=== PATIENT | female | born 1955 | race Caucasian/White ===

== ENCOUNTER 2017-07-02 12:17 | Emergency (ER) | payer OTHER, SELFPAY ==
[2017-07-02 12:19] VITALS: BP 151/98; PULSE 94; RESP 16; TEMP 36.8; O2SAT 99; BMI 18.8
--- NOTE | 2017-07-02 12:34 | RAD_ITS ---
STUDY: X-RAY CHEST REASON FOR EXAM: Female, 62 years old. 2 day history of chest pain. TECHNIQUE: PA and lateral views of the chest. COMPARISON: None. FINDINGS: EKG electrodes are seen. Pectus excavatum deformity. Hyperinflation. Decreased bronchovascular markings in the upper lobes suggestive of emphysematous changes. There is no demonstrated pleural abnormality. Normal size heart. Normal mediastinum and polo. Normal visualized pulmonary arteries. Normal visualized aortic arch and descending thoracic aorta. Normal visualized thoracic spine. Normal visualized ribs, clavicles, and shoulders. There is no demonstrated abnormality of the visualized soft tissue structures of the upper abdomen. RAD/Chest PA and Lateral IMPRESSION: Hyperinflation. No acute abnormality is seen. Electronically Signed: Jj Fowler MD at 13:31 EST Tel [phone], Service support ,
[2017-07-02 12:43] VITALS: BP 142/76; PULSE 86; RESP 16; O2SAT 99
[2017-07-02 14:18] VITALS: BP 118/71; PULSE 75; RESP 16; O2SAT 100
--- NOTE | 2017-07-02 14:50 | ED.DCSUM_ITS ---
- ER Visit Summary Date of Service: 07/02/17 Chief Complaint: Heartburn History of Present Illness: The patient is a 62 F presents with epigastric mid chest heartburn sensation that started 3 minutes after she was on a treadmill Saturday. She had pain for days. She has taken antacids with no improvement. She denies hematemesis, melena hematochezia. She has walked up and down steps with no exacerbation of her symptoms. There is no radiation of her discomfort. There is no associated symptoms. She has no risk factors for coronary disease. She denies any leg pain, swelling or discoloration. There is no history of PE or DVT or any risk factors. Physical Examination: Vital signs are normal. Patient appears in no distress. HEENT exam is unremarkable. Heart is regular without murmur, gallop or rub. S1 and S2 are normal. Lungs are clear to auscultation with good movement of air bilaterally. There is no reproducible chest pain. There is minimal discomfort with deep palpation epigastric. There is no paraspinal megaly. Negative Bhatti sign. There are no skin lesions noted. There is no asymmetry, swelling, discoloration, leg vein distention, palpable cords or tenderness along the distribution of the deep venous system. Test Results: G that accompany patient from the office reveals a sinus rhythm with no abnormality other than possible left atrial enlargement. This is unchanged from July 27, 2009. Chest x-ray is obtained with no obvious hiatal hernia. There is no cardiomegaly, abnormality mediastinum or lung parenchyma. Troponin level with greater than 48 hours the pain is normal. Emergency Department Course and Treatment: EKG, chest x-ray and troponin were obtained. The EKG was not repeated since it was normal and unchanged from 2009. She did receive a GI cocktail. When she was reassessed at 1445 she told me her pain had resolved. Treatment Plan: Follow-up with PCP as needed Disposition: Discharge to home in stable and improved condition Impression: Chest pain pain secondary to reflux This note was generated with [employer] dictation software. It may contain incorrect words, spelling, and punctuation that were not noted in review of the chart prior to signing ED Disposition - Plan for ED Patient: Disposition: Home or Assisted Living Chief Complaint: Chest Pain Instructions: ED GERD Referrals: Lnea Trejo MD [Primary Care Provider] - As Needed
[2017-07-02 15:04] VITALS: BP 116/72; PULSE 81; RESP 13; O2SAT 100
--- NOTE | 2017-07-02 15:06 | ED.RN ---
REVIEWED D/C INSTRUCTIONS, FOLLOW UP CARE, AND S/S THAT WOULD WARRANT A RETURN TO THE ED WITH PT. PT VERBALIZED AN UNDERSTANDING AND DENIES FURTHER QUESTIONS FOR THIS RN. PT SKIN P/W/D, RESP EVEN AND UNLABORED, PT A&O X 3, NO DISTRESS NOTED. PT AMBULATED OUT OF ED, GAIT STEADY.
== END 2017-07-02 15:07 | disposition home or self-care (01) ==
PROVIDERS: Emergency Provider Emergency Medicine; Family Provider Family Medicine; PCP Family Medicine
DX: K21.9 Gastro-esophageal reflux disease without esophagitis (principal); R07.9 Chest pain, unspecified; Z79.899 Other long term (current) drug therapy
CPT/HCPCS: 71046; 84484; 99284; A4216

== ENCOUNTER → 2017-08-16 10:03 | Outpatient (CLI) | payer OTHER, SELFPAY ==
--- NOTE | 2017-08-16 10:06 | HPBI_ITS ---
MAMMOGRAPHY - BILATERAL SCREENING 3-D JOANN SYNTHESIS REASON FOR EXAM: Female, 62 years old. Bilateral Screening 3-D tomosynthesis PERTINENT HISTORY: History of benign breast biopsy.. TECHNIQUE: 2-D mammograms and 3-D Joann synthesis of the breast (s) were performed. CAD was performed. COMPARISON: 07/11/2016 FINDINGS: The breast composition is heterogeneously dense that can obscure small breast masses. Scattered benign calcifications are seen. No dense spiculated masses or suspicious microcalcifications are identified. No architectural distortion is identified. There is no skin thickening or retraction. There has been no significant change since the prior study. HPBI/SCREENING MAMM (CAD), BILAT IMPRESSION: No mammographic signs of malignancy. Routine yearly mammograms recommended. ASSESSMENT CATEGORY: BIRADS Category 2: Benign. A letter regarding these results will be sent to the patient by the facility within 30 days. FOLLOW UP RECOMMENDATION: Yearly follow up mammogram recommended. (A) Approximately 10% of breast cancers are not detected by mammography. A normal mammogram should not delay biopsy of a clinically suspicious abnormality. Electronically Signed: Manuel Navarro MD at 8:40 EDT , Service support ,
== END ==
PROVIDERS: Family Provider Family Medicine; PCP Family Medicine; Visit Provider Family Medicine
DX: Z12.31 Encounter for screening mammogram for malignant neoplasm of breast (principal)
CPT/HCPCS: 77063; 77067

== ENCOUNTER 2017-09-13 07:32 | Day surgery (SDC) | payer OTHER, SELFPAY ==
--- NOTE | 2017-09-13 | COLBX_PTH ---
PATIENT: SAMANTHA RIVERA LOC: EN U#:[id number] AGE/SX: 62/F ROOM: RE09/13/[address]: Dr. Yves Galdamez MD : 1955 BED: DIS: 09/13/2017 SPEC #: [id number] RECD: 09/13/17 14:30 STATUS: STAR RENEA #: [id number] ANDRE: 09/13/17 00:[address]: Yves Galdamez DEPT: SURGICAL PATHOLOGY RECD BY: Clive Harley ENTERED: 09/13/17 14:30 SP TYPE: COLON BX OTHR DR: Dr. Lena Trejo MD Tissues: Rectum, NOS Procedures: Surgery Specimen Level IV HEADER OPERATION: Colonoscopy with biopsy PRE-OP DIAGNOSIS: Screening TISSUE SUBMITTED: Rectal polyp biopsy MICROSCOPIC DIAGNOSIS Rectal polyp, biopsy: Hyperplastic polyp. AM:rosa 09/16/17 MICROSCOPIC DESCRIPTION Slides are reviewed. GROSS DESCRIPTION Received in fixative is one container labeled with the patient's name and designated rectal polyp. The specimen consists of one irregular fragment of light puri soft tissue that measures 0.3 x 0.2 x 0.1 cm. The specimen is totally submitted in one cassette. / AM:rosa 09/13/17 TC:5 CPT: 54398
[2017-09-13 07:55] VITALS: BP 117/91; PULSE 97; RESP 18; TEMP 36.6; O2SAT 100; BMI 17.9
--- NOTE | 2017-09-13 08:29 | H&P.OPEN ---
Past Medical/Surgical History - Planned Operation Planned Operative Procedure/s: COLONOSCOPY Date of Operative Procedure: 09/13/17 Permit Signed: No S.O.S: No Is This Patient Having a Total Joint: No - Previous Hospitalizations/Surgeries HX of Surgeries: BREAST BIOPSIES LEFT. D AND C. EGD Any Problems With Anesthesia: No You/Your Family Experience Fever (Hyperthermia) With Anes: No Cholinesterase deficiency: No - Cardiovascular Hx Chest Pain within Last 2 months: No Hx of Irregular Heartbeat and/or Afib: No Hx Heart Attack: No Hx Congestive Heart Failure: No Hx Rheumatic Fever: No Hx Hypertension: No Hx Internal Defibrillator: No Hx Pacemaker: No Hx Cardiac Catheterization: No Hx Cardiac Surgery/Stents/Etc.: No Hx Stress Test: Yes - 2009, [facility] HX Edema: No Hx Pain in Legs when Walking/Leg Cramps: No - Respiratory Chronic Cough: No HX of Shortness of Breath: No Hoarseness: No Hx Chronic Obstructive Pulmonary Disease (COPD): No Hx Asthma: No Hx Emphysema: No Hx Sleep Apnea: No Hx Oxygen Use at Home: No Hx Respiratory Tract Infection/Cold (presently): No Do You Snore Loudly (louder than talking or can be heard): No Do You Often Feel Tired/ Fatigued/ Sleepy Dring Daytime?: No Has Anyone Observed You Stop Breathing During Sleep?: No Result (for STOP score): Negative Hx Smoking: No Smoking Status: Never smoker - Gastrointestinal Hx Gastroesophageal Reflux: Yes Controlled With Meds: Yes - NEXIUM Hx Gastrointestinal Disorders: No Hx Gastrointestinal Bleed: No Hx Ulcer: No Hx Hiatal Hernia: No Difficulty Chewing/Swallowing: No Recent Onset of Swallowing Problems: No Special diet followed at home: No Hx Unplanned Weight Loss of 20#: No HX Unplanned Weight Gain of 20#: No - Neurological Hx Seizures: No HX Syncope/Blackout Spells/Unconsciousness: No Hx CVA/Stroke: No Hx Transient Ischemic Attacks (TIA): No Hx Multiple Sclerosis: No Hx Parkinson's Disease: No Hx Head/Neck Injury: No Hx Headaches: No Hx Back Injury/Pain: No Recent Onset of Speech Difficulty: No Restless Legs: No Does patient have nerve stimulator: No Patient instructed to have device shut off: No Rep notified?: No - Blood Disorder Hx Leukemia: No Bleeding Tendencies: No Hx Deep Vein Thrombosis: No Hx High Cholesterol: No Blood Transmitted Disease: No Hx Hepatitis: No Hx Cirrhosis: No Hx Anemia: No Hx Blood Disorders: No - Reproduction : No Is Patient Lactating: No Hx Hysterectomy: No Hx Tubal Ligation: No Are You Post Menopause: Yes - Genitourinary Hx Renal Disease: No - Musculoskeletal Hx Arthritis: No Hx Rheumatoid Arthritis: No Hx Gout: No Recent Onset of an Orthopedic Problem: No - Endocrine Hx Diabetes: No Thyroid Disease: No Hx Steroid Therapy: No - Psycho/Social Hx Substance Use: No Hx Alcohol Use: Yes - 5 DRINKS/WEEK Hx Anxiety: No Hx Depression: No Mental Illness: No Hx Dementia: No - Miscellaneous Hx Cancer: No Recent Exposure to Contagious Disease: No Active MRSA: No Hx of C-Diff: No Any Loose Teeth: No Allergies No Known Allergies Allergy (Verified 09/06/17 10:36) Home Medications Medication Instructions Recorded Esomeprazole Mag Trihydrate 40 mg PO DAILY 09/06/17 [Nexium] - Discharge Is Pt Admitted From a Halfway, or a Retirement: No Who Could Help: FAMILY After D/C, Where Do you Plan to Go: Return Home - From the PAT History Number of Risk Factors: 1 - Physical Exam General: Alert, Oriented x3, Cooperative Lungs: Normal air movement Cardiovascular: Regular rate, Regular Rhythm Abdomen: Soft, Non Tender, Non-Distended Vital Signs Temp Pulse Resp BP Pulse Ox 98 F 97 18 117/91 H 100 09/13/17 07:55 09/13/17 07:55 09/13/17 07:55 09/13/17 07:55 09/13/17 07:55 Oxygen Delivery Method Room Air Weight: 107 lb 9.369 oz Body Mass Index (BMI) 17.9 Assessment/Plan 62-year-old female for screening colonoscopy 1. Patient reports she has never had a colonoscopy in the past. She does not have any abdominal pain or blood in her stool. She has no family history of colon cancer. 2. I explained endoscopy in detail to the patient. I explained the risks including but not limited to stroke or heart attack with anesthesia, perforation of the GI tract, bleeding, infection. I explained that any of these could necessitate further emergency surgery. The patient understands and all questions were answered sufficiently. The patient wishes to proceed with procedure. Yves Galdamez MD Pager: [facility] [address] [place] [address] Office: Surgery Risks - Colonoscopy Risks Include but are not Limited To: Risks include but are not limited to: Bleeding, perforation requiring further surgery, inability to complete colonoscopy requiring barium enema.
[2017-09-13 09:17] VITALS: BP 110/79; BP 117/91; PULSE 96; RESP 16; TEMP 36; O2SAT 99
[2017-09-13 09:22] VITALS: BP 117/91; BP 93/73; PULSE 89; RESP 16; O2SAT 100
--- NOTE | 2017-09-13 09:23 | PCM.OPRPT ---
Problem List (1) Screen for colon cancer Status: Acute Report of Operation Date of Procedure: 09/13/17 Pre-Operative Diagnosis: Screening for colon cancer Post-Operative Diagnosis: Hyperplastic polyp of the rectum Surgery/Procedure Performed:: Colonoscopy with biopsy Specimen's removed: Rectal polyp Description of Procedure: The major risks and benefits associated with the procedure were explained to the patient in detail. The patient verbalized understanding and agreement with the same. The patient was brought to the endoscopy suite. After adequate sedation was achieved, the patient was placed in the left lateral decubitus position and a digital rectal exam was performed. This examination was within normal limits. A well-lubricated colonoscope was then inserted into the rectum and advanced under direct visualization to the level of the cecum. The bowel prep was good. The cecum was identified by both visual and anatomic landmarks. A photograph was taken of the end of the cecum. The scope was then fully withdrawn while examining the color, texture, anatomy and integrity of the mucosa from the cecum to the anal canal. The findings were consistent with normal colonic mucosa. The patient did have a small hyperplastic appearing polyp of the rectum. This was removed with cold forceps. Hemostasis was good. Over 6 minutes were taken to examine the colonic mucosa. Upon reaching the rectum the scope was retroflexed to examine the distal rectal vault. The scope was then straightened and was completely retrieved upon exiting the anal canal and the procedure was terminated. The patient was then transferred to the recovery room in stable condition. Recommendations for follow up: Dependent on pathology but likely 10 years
[2017-09-13 09:27] VITALS: BP 108/74; BP 117/91; PULSE 86; RESP 16; O2SAT 100
[2017-09-13 09:32] VITALS: BP 109/70; BP 117/91; PULSE 83; RESP 16; TEMP 36.1; O2SAT 100
[2017-09-13 10:22] VITALS: BP 117/91
== END 2017-09-13 10:23 | disposition home health service (06) ==
LOC: EN 07:33 → AC 07:35
PROVIDERS: Family Provider Family Medicine; PCP Family Medicine; Visit Provider Surgery
PROC: 0DJD8ZZ Inspection of Lower Intestinal Tract, Via Natural or Artificial Opening Endoscopic (ICD-10-PCS; CPT 45378; principal; 2017-09-13 08:25)
DX: Z12.11 Encounter for screening for malignant neoplasm of colon (principal); K62.1 Rectal polyp; K21.9 Gastro-esophageal reflux disease without esophagitis; Z79.899 Other long term (current) drug therapy
CPT/HCPCS: 45380; 88305; J7120

== ENCOUNTER 2017-09-23 09:30 | Outpatient (RCR) | payer OTHER, SELFPAY ==
--- NOTE | 2017-09-10 09:05 | HP.PTEVAL ---
Patient's Visit Information SAMANTHA RIVERA is a 62 year old F referred to Physical Therapy by Lena Trejo MD with a diagnosis of R shoulder pain. Date of Evaluation: 09/10/17 Physical Therapist: Orlando French PT, - Visit Plan Frequency: 3x /Week Duration: 1 Week Plan: Issue HEP consisting of rot cuff strengthening and scap stab ex's - Subjective Subjective: R shoulder has been sore since March of 2017. Pt reports her pain has progressed since that date. Pt reports no specific reason for her pain. Pain only occurs with movement, not with rest. Pt is L arm dominant. No PMHx of R shoulder pain. Occasional sleep diff secondary to sleeping on it. No T or N in R UE. No c/o cervical spine pain this date. 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 Pt reports reaching out to her side, reaching behind her back, and reaching overhead all produce R shoulder pain. Pt reports she will massage her shoulder to make it feel better. 0/10 pain at rest, 8/10 at worst (reaching for her shopping cart). No Dx tests at this time. - Pain R shoulder Pain Intensity (Out of 10): 0 Pain Intensity Range: 8 - Objective Neuro: B UE sensation is WNL to light touch. B bicepital reflex= 2/3. Palpation: Pt is very tender on the post/lat aspect of R UE. No obvious deformity present. ROM: L shoulder flex= 145, abd= 155, ER= 75, IR WNL; R shoulder flex= 95, abd= 60, ER= 30, IR moderately limited. MMT: R shoulder abd and ER= 4-/5. All other B UE MMT= 5/5 throughout in available ROM. Special tests: Pos HK test - Goals Goal 1:: I with HEP in 2-3 visits Goal Time Frame: 1 Week - Rehabilitation Potential Physical Therapy Diagnosis: Pt has R shoulder pain, weakness, and limited ROM secondary to weakness in R shoulder external rotators Rehabilitation Potential: Good - Anticipated Interventions Patient/Client Instruction: Educate patient on: Condition, Plan of Care For the Purpose of:: To improve self management Therapeutic Exercise to Include: Strength training, Endurance training, Active ROM For the Purpose of:: To decrease pain, To increase ROM, To improve muscle performance and motor function Cryotherapy (ice pack, ice massage): Yes For the Purpose of:: To decrease pain Thank you for the opportunity to evaluate your patient. For Medicare and Medicare HMO plans, please review the plan of care and approve it. It will need to be FAXED BACK to us at [phone] for Medicare purposes. Please let me know if there are questions or concerns regarding this plan of care. Physician Signature: Date:
--- NOTE | 2017-09-23 10:04 | HP.PTEVAL ---
Patient's Visit Information SAMANTHA RIVERA is a 62 year old F referred to Physical Therapy by Lena Trejo MD with a diagnosis of R shoulder pain. Date of Evaluation: 09/10/17 Physical Therapist: Orlando French PT, - Visit Plan Frequency: 3x /Week Duration: 1 Week Plan: Discharge - Subjective Subjective: R shoulder has been sore since March of 2017. Pt reports her pain has progressed since that date. Pt reports no specific reason for her pain. Pain only occurs with movement, not with rest. Pt is L arm dominant. No PMHx of R shoulder pain. Occasional sleep diff secondary to sleeping on it. No T or N in R UE. No c/o cervical spine pain this date. 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 Pt reports reaching out to her side, reaching behind her back, and reaching overhead all produce R shoulder pain. Pt reports she will massage her shoulder to make it feel better. 0/10 pain at rest, 8/10 at worst (reaching for her shopping cart). No Dx tests at this time. - Pain R shoulder Pain Intensity (Out of 10): 0 Pain Intensity Range: 8 - Objective Neuro: B UE sensation is WNL to light touch. B bicepital reflex= 2/3. Palpation: Pt is very tender on the post/lat aspect of R UE. No obvious deformity present. ROM: L shoulder flex= 145, abd= 155, ER= 75, IR WNL; R shoulder flex= 95, abd= 60, ER= 30, IR moderately limited. MMT: R shoulder abd and ER= 4-/5. All other B UE MMT= 5/5 throughout in available ROM. Special tests: Pos HK test - Goals Goal 1:: I with HEP in 2-3 visits Goal Time Frame: 1 Week - Rehabilitation Potential Physical Therapy Diagnosis: Pt has R shoulder pain, weakness, and limited ROM secondary to weakness in R shoulder external rotators Rehabilitation Potential: Good - Anticipated Interventions Patient/Client Instruction: Educate patient on: Condition, Plan of Care For the Purpose of:: To improve self management Therapeutic Exercise to Include: Strength training, Endurance training, Active ROM For the Purpose of:: To decrease pain, To increase ROM, To improve muscle performance and motor function Cryotherapy (ice pack, ice massage): Yes For the Purpose of:: To decrease pain Thank you for the opportunity to evaluate your patient. For Medicare and Medicare HMO plans, please review the plan of care and approve it. It will need to be FAXED BACK to us at [phone] for Medicare purposes. Please let me know if there are questions or concerns regarding this plan of care. Physician Signature: Date:
--- NOTE | 2017-10-23 14:54 | HP.PTDCSUM ---
HP - PT D/C Summary It has been my pleasure to treat SAMANTHA RIVERA under orders from Lena Trejo MD, for the diagnosis of R shoulder pain for a total of 4 visit(s). Discharge Date: Please see the following information for a summary of their discharge status. - Subjective Subjective: No pain at rest - Pain R shoulder Pain Intensity (Out of 10): 0 - Objective Objective/Function: Pt I with HEP - Goals Goal 1:: I with HEP in 2-3 visits Goal Progress: Goal Met - Plan Plan: Discharge - D/C Information If there are questions or concerns regarding this patient's physical therapy, please feel free to call me at [phone]. Thank you for the referral of this patient. Sincerely, Orlando French, PT,
== END 2017-09-23 19:00 | disposition home or self-care (01) ==
LOC: PT 09:30
PROVIDERS: Family Provider Family Medicine; PCP Family Medicine; Visit Provider Family Medicine
DX: M25.519 Pain in unspecified shoulder (principal)
CPT/HCPCS: 97110; 97161; 97530

== ENCOUNTER → 2018-10-23 | Outpatient (CLI) | payer OTHER, SELFPAY ==
[2018-09-29 16:48] VITALS: BMI 18.8
--- NOTE | 2018-10-23 12:10 | BI_ITS ---
MAMMOGRAPHY - BILATERAL SCREENING REASON FOR EXAM: Female, 63 years old. Routine annual screening examination. PERTINENT HISTORY: Non-contributory. Remote left excisional breast biopsy. TECHNIQUE: Digital bilateral breast joann (3D mammographic acquisition) in the CC and MLO projections. 2-D mediolateral oblique (MLO) and craniocaudad (CC) views of both breasts were obtained. CAD: Full Field Digital Mammography with Computer Added Detection was performed. COMPARISON: Comparison is made with prior study dated August 16, 2017 and July 11, 2016. FINDINGS: Breast Composition: The breasts are heterogeneously dense, which may obscure small masses. There are no dominant masses or suspicious calcifications. No other significant abnormalities are identified. There has been no significant change since the prior study. BI/SCREEN MAMM (CAD) W/JOANN BILAT IMPRESSION: Stable bilateral screening mammogram. Yearly follow-up mammogram recommended. (A) ASSESSMENT CATEGORY: BIRADS Category 1: Negative. A letter regarding these results will be sent to the patient by the facility within 30 days. Approximately 10% of breast cancers are not detected by mammography. A normal mammogram should not delay biopsy of a clinically suspicious abnormality. [id number] Electronically Signed: Jj Fowler, at 13:51 EDT , Service support ,
== END | disposition home or self-care (01) ==
LOC: OPBI 12:06
PROVIDERS: Family Provider Family Medicine; PCP Family Medicine; Referring Provider Family Medicine; Visit Provider Family Medicine
DX: Z12.31 Encounter for screening mammogram for malignant neoplasm of breast (principal)
CPT/HCPCS: 77063; 77067

== ENCOUNTER → 2020-04-05 06:59 | Outpatient (CLI) | payer MEDICARE, OTHER, SELFPAY ==
[2018-09-29 16:48] VITALS: BMI 18.8
--- NOTE | 2020-04-05 07:01 | BI_ITS ---
MAMMOGRAPHY - BILATERAL SCREENING REASON FOR EXAM: Female, 65 years old. Routine annual screening examination. PERTINENT HISTORY: Non-contributory. Remote left excisional breast biopsy. TECHNIQUE: Digital bilateral breast joann (3D mammographic acquisition) in the CC and MLO projections. 2-D mediolateral oblique (MLO) and craniocaudad (CC) views of both breasts were obtained. CAD: Full Field Digital Mammography with Computer Added Detection was performed. COMPARISON: Comparison is made with prior study dated 10/23/2018 and 08/16/2017. FINDINGS: Breast Composition: The breasts are heterogeneously dense, which may obscure small masses. There are no dominant masses or suspicious calcifications. No other significant abnormalities are identified. There has been no significant change since the prior study. BI/SCREEN MAMM (CAD) W/JOANN BILAT IMPRESSION: Stable bilateral screening mammogram. Yearly follow-up mammogram recommended. (A) ASSESSMENT CATEGORY: BIRADS Category 1: Negative. A letter regarding these results will be sent to the patient by the facility within 30 days. Approximately 10% of breast cancers are not detected by mammography. A normal mammogram should not delay biopsy of a clinically suspicious abnormality. [id number] Electronically Signed: Jj Fowler, at 8:04 EST , Service support ,
== END ==
PROVIDERS: PCP Family Medicine; Referring Provider Family Medicine; Visit Provider Family Medicine
DX: Z12.31 Encounter for screening mammogram for malignant neoplasm of breast (principal)
CPT/HCPCS: 77063; 77067

== ENCOUNTER → 2020-08-31 09:10 | Outpatient (CLI) | payer MEDICARE, OTHER, SELFPAY ==
[2018-09-29 16:48] VITALS: BMI 18.8
[2020-08-31 10:59] LABS: Anion Gap 3 (5-15); BUN 22 mg/dL (7-18); BUN/Creat Ratio 29.5 RATIO (10-20); Calcium,Total 9.4 mg/dL (8.5-10.1); Chloride 106 mmol/L (98-107); Cholesterol 215 mg/dL (200); Creatinine, Serum 0.74 mg/dL (0.55-1.02); EST Glomerular Filtration Rate 83 mL/min (>60); Est Glom Filt Rate - Afr Amer 100 mL/min (>60); Glucose 85 mg/dL (74-106); High Density Lipoprotein 80 mg/dL; Magnesium 2.2 mg/dL (1.6-2.6); Potassium 4.2 mmol/L (3.5-5.1); Sodium Level 141 mmol/L (136-145); Triglycerides 70 mg/dL; Very Low Density Lipoprotein 14 mg/dL (5-40)
[2020-08-31 11:57] LABS: Vitamin D,25 Hydroxy 37.2 ng/mL
== END ==
PROVIDERS: PCP Family Medicine; Referring Provider Family Medicine; Visit Provider Family Medicine
DX: Z00.00 Encounter for general adult medical examination without abnormal findings (principal); K21.9 Gastro-esophageal reflux disease without esophagitis; M85.80 Other specified disorders of bone density and structure, unspecified site
CPT/HCPCS: 36415; 80048; 80061; 82306; 83735

== ENCOUNTER → 2020-09-20 08:52 | Outpatient (CLI) | payer MEDICARE, OTHER, SELFPAY ==
[2018-09-29 16:48] VITALS: BMI 18.8
--- NOTE | 2020-09-20 08:59 | BD_ITS ---
STUDY: DUAL ENERGY X-RAY ABSORPTIOMETRY / DXA REASON FOR EXAM: Female, 65 years old. V76.12ScreeningBONE DENSITY REASON FOR EXAM TECHNIQUE: Bone Mineral Density (BMD) measurements of lumbar spine and bilateral hips were obtained. COMPARISON: None. FINDINGS: Lumbar Spine (L1-L4): g/cm2 (1.121) / T-score (-0.5) / Z-score (1.1) Findings are suggestive of normal bone density with a low fracture risk. Left Femur Total: g/cm2 (0.847) / T-score (-1.3) / Z-score (0.0) Left Femoral Neck: g/cm2 (0.768) / T-score (-1.9) / Z-score (-0.4) Right Femur Total: g/cm2 (0.855) / T-score (-1.2) / Z-score (0.1) Right Femoral Neck: g/cm2 (0.738) / T-score (-2.2) / Z-score (0.6) BD/Dexa Bone Density Study IMPRESSION: The patient is considered osteopenic as outlined below according to World Tal Organization (WHO) criteria with a high fracture risk. Reference Information: The T-score is the number of standard deviations above or below the standard which is normal for young adults at their peak bone mineral density. The World Health Organization (WHO) interprets the T-scores as follows: Above -1 Normal bone density Between -1 and -2.5 Osteopenia Equal to / or below -2.5 Osteoporosis As a practical clinical guideline, osteopenia may be graded as follows: Mild -1 through -1.5 Moderate -1.6 through -2.0 Severe -2.1 through -2.4 The Z-score is the number of standard deviations above or below age-matched controls. A Z-score of less than -1.5 would be considered abnormal. References: 1. NIH Osteoporosis and Related Bone Diseases www osteo.org 2. International Society for Clinical Densitometry www iscd.org 3. National Osteoporosis Foundation www nof.org Electronically Signed: Jj Fowler MD at 13:30 EDT , Service support ,
== END ==
PROVIDERS: PCP Family Medicine; Referring Provider Family Medicine; Visit Provider Family Medicine
DX: M85.89 Other specified disorders of bone density and structure, multiple sites (principal)
CPT/HCPCS: 77080

== ENCOUNTER → 2021-04-24 09:43 | Outpatient (CLI) | payer MEDICARE, OTHER, SELFPAY ==
[2018-09-29 16:48] VITALS: BMI 18.8
--- NOTE | 2021-04-24 09:45 | BI_ITS ---
MAMMOGRAPHY - BILATERAL SCREENING REASON FOR EXAM: Female, 66 years old. Routine annual screening examination. PERTINENT HISTORY: Remote left excisional breast biopsies. TECHNIQUE: Digital bilateral breast joann (3D mammographic acquisition) in the CC and MLO projections. 2-D mediolateral oblique (MLO) and craniocaudad (CC) views of both breasts were obtained. CAD: Full Field Digital Mammography with Computer Added Detection was performed. COMPARISON: Comparison is made with prior study dated 04/05/2020 and 10/23/2018. FINDINGS: Breast Composition: The breasts are heterogeneously dense, which may obscure small masses. There are no dominant masses or suspicious calcifications. No other significant abnormalities are identified. There has been no significant change since the prior study. BI/SCRN MAMM (CAD)W/JOANN BILAT IMPRESSION: Stable bilateral screening mammogram. Yearly follow-up mammogram recommended. (A) ASSESSMENT CATEGORY: BIRADS Category 1: Negative. A letter regarding these results will be sent to the patient by the facility within 30 days. Approximately 10% of breast cancers are not detected by mammography. A normal mammogram should not delay biopsy of a clinically suspicious abnormality. [id number] Electronically Signed: Jj Fowler MD at 10:55 EST , Service support ,
== END ==
PROVIDERS: PCP Family Medicine; Referring Provider Family Medicine; Visit Provider Family Medicine
DX: Z12.31 Encounter for screening mammogram for malignant neoplasm of breast (principal)
CPT/HCPCS: 77063; 77067

== ENCOUNTER → 2022-08-10 | Outpatient (CLI) | payer MEDICARE, OTHER, SELFPAY ==
--- NOTE | 2022-08-10 12:41 | BI_ITS ---
MAMMOGRAPHY - BILATERAL SCREENING 3-D TOMOSYNTHESIS REASON FOR EXAM: Female, 67 years old. Routine screening, PERTINENT HISTORY: No significant family history. Previous left breast biopsy TECHNIQUE: 2-D mammograms and 3-D Tomosynthesis of the breast (s) were performed. CAD was performed. COMPARISON: 04/05/2020 FINDINGS: The breast composition is heterogeneously dense that can obscure small breast masses. Scattered benign calcifications are seen. No dense spiculated masses or suspicious microcalcifications are identified. No architectural distortion is identified. There is no skin thickening or retraction. There has been no significant change since the prior study. BI/SCRN MAMM (CAD)W/JOANN BILAT IMPRESSION: No mammographic signs of malignancy. Routine yearly mammograms recommended. ASSESSMENT CATEGORY: BIRADS Category 2: Benign. A letter regarding these results will be sent to the patient by the facility within 30 days. FOLLOW UP RECOMMENDATION: Yearly follow up mammogram recommended. (A) Approximately 10% of breast cancers are not detected by mammography. A normal mammogram should not delay biopsy of a clinically suspicious abnormality. Electronically Signed: Manuel Navarro MD at 13:24 EDT ,
== END | disposition home or self-care (01) ==
LOC: OPBI 12:39
PROVIDERS: PCP Family Medicine; Visit Provider Family Medicine
DX: Z12.31 Encounter for screening mammogram for malignant neoplasm of breast (principal)
CPT/HCPCS: 77063; 77067

== ENCOUNTER → 2022-10-15 | Outpatient (CLI) | payer MEDICARE, OTHER, SELFPAY ==
--- NOTE | 2022-10-15 17:48 | STRESSREP ---
Stress Test Report Exercise stress test. 67-year-old lady with a history of chest pain Stress protocol: Resting EKG demonstrates normal sinus rhythm with a rate of 71 bpm resting blood pressure is 118/70 mmHg. The patient exercised according to the regular Curry protocol for a total duration of 6 minutes attaining a maximum heart rate of 169 bpm which was 111% of maximum predicted heart rate; the maximum workload was 7 metabolic equivalents. At rest there were no ST or T wave changes noted to suggest ischemia and at peak exercise upsloping ST changes only were noted which did not meet the criteria for ischemia. No clinical angina was noted the test was terminated due to the target heart rate being achieved/fatigue. The peak blood pressure was 160/72 mmHg. Rate-pressure product was 26,500. Conclusion: Stress test with no EKG criteria for ischemia at a moderate workload.
== END | disposition home or self-care (01) ==
LOC: CVS 11:46
PROVIDERS: PCP Family Medicine; Referring Provider Family Medicine; Visit Provider Family Medicine
DX: R07.9 Chest pain, unspecified (principal)
CPT/HCPCS: 93017

== ENCOUNTER → 2023-09-04 | Outpatient (CLI) | payer MEDICARE, OTHER, SELFPAY ==
--- NOTE | 2023-09-04 13:21 | BI_ITS ---
MAMMOGRAPHY - BILATERAL SCREENING REASON FOR EXAM: Female, 68 years old. Routine annual screening examination. PERTINENT HISTORY: Non-contributory. Remote left excisional breast biopsies. TECHNIQUE: Digital bilateral breast joann (3D mammographic acquisition) in the CC and MLO projections. 2-D mediolateral oblique (MLO) and craniocaudad (CC) views of both breasts were obtained. CAD: Full Field Digital Mammography with Computer Added Detection was performed. COMPARISON: Comparison is made with prior examination dated August 10, 2022 and April 24, 2021. FINDINGS: Breast Composition: The breasts are extremely dense, which lowers the sensitivity of mammography. There are no dominant masses or suspicious calcifications. No other significant abnormalities are identified. There has been no significant change since the prior study. BI/SCRN MAMM (CAD)W/JOANN BILAT IMPRESSION: Stable bilateral screening mammogram. Yearly follow-up mammogram recommended. (A) ASSESSMENT CATEGORY: BIRADS Category 1: Negative. A letter regarding these results will be sent to the patient by the facility within 30 days. Approximately 10% of breast cancers are not detected by mammography. A normal mammogram should not delay biopsy of a clinically suspicious abnormality. [id number] Electronically Signed: Jj Fowler MD at 15:00 EDT ,
== END | disposition home or self-care (01) ==
LOC: OPBI 13:21
PROVIDERS: PCP Family Medicine; Referring Provider Family Medicine; Visit Provider Family Medicine
DX: Z12.31 Encounter for screening mammogram for malignant neoplasm of breast (principal)
CPT/HCPCS: 77063; 77067

== ENCOUNTER 2023-10-23 13:30 | Outpatient (RCR) | payer MEDICARE, OTHER, SELFPAY ==
--- NOTE | 2023-09-05 12:15 | HP.PTEVAL_ITS ---
Patient's Visit Information Visit Information Visit Information: SAMANTHA RIVERA is a 68 year old F referred to Physical Therapy by Dr. Lena Trejo MD with a diagnosis of L shoulder/RTC tendonitis. Date of Evaluation: 09/05/23 Physical Therapist: Gato Miller DPT Visit Plan Frequency: 1x/Week Duration: 6 Weeks Plan: -GH joint mobs to increase ROM (post and inferior glides with distraction especially) grade 3 -AAROM for ER/IR, ABD, flex (gave pt to do at home too) -shoulder stretching (pulleys, wall walks...) -scapular/postural strengthening -shoulder/RTC strengthening once full ROM Pt only painful at end range, main focus is on ROM and improving joint mobility, will need to begin with more manual therapy and then transition to strengthening once ROM becomes easier Subjective Subjective: Pt reports to PT with L shoulder pain that began in February, has slowly gotten worse with an ache in the morning. Pt started taking pickleball lessons and felt pain with a hard swing, no issues with golfing except for a pull at the end of the follow through. Pt has sharp pain when reaching up or throwing/pushing something. 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 Able to perform all ADLs indep. Pt is left handed, normally sleeps on L side. Rarely has any neck pain, no N/T in UE. Having arm up while driving for long periods creates some stiffness. GOALS: get back to golfing, be able to reach overhead with less pain, possibly try pickleball Pain Left Shoulder: Pain Intensity (Out of 10): 2 Pain Intensity Range: 0 and 8 Objective Objective: AROM: L - 103 flex, 95 abd, IR to iliac crest, ER to base of occiput R - WNL PROM: early firm end feel with flex, abd, and ER MMT: R shoulder global strength 4-/5, DNT L shoulder d/t pain and lacking ROM (able to do IR/ER at side, no pain but ER weaker) POSTURE: rounded shoulders and forward head JOINT PLAY: WNL except for post glide, hypomobile and able to tolerate grade 3 post/inf glides with PROM SIMMONS-DAYTON: (+) ER LAG: (-) DROP ARM: (-) O'BRIENS: (+) BELLY PRESS: (+) Testing reveals possible joint/capsule pathology, which has lead to decreased ROM and pain with end range motion (active and passive). Pt has lost some strength, but is most limited by painful ROM, unsure extent of muscular involvement d/t pain with testing positions. Able to tolerate joint mobilizations for the purpose of increasing ROM. Balance/Special Test Scores Quick DASH Score: 29.5450 Goals Goal 1:: Pt will achieve symmetrical shoulder ROM with <2/10 pain at end range Goal Time Frame: 4-6 Weeks Goal 2:: Pt will demonstrate symmetrical shoulder strength with <2/10 pain Goal Time Frame: 6-8 Weeks Goal 3:: Pt will be able to play golf a round of golf with <2/10 pain Goal Time Frame: 6-8 Weeks Goal 4:: Pt will be able to drive for >30min with <2/10 pain and stiffness Goal Time Frame: 4-6 Weeks Goal 5:: Pt will demonstrate good posture throughout entire session without cues to correct Goal Time Frame: 2-4 Weeks Rehabilitation Potential Physical Therapy Diagnosis: Pt presents to PT with L shoulder hypomobility, decreased ROM, pain, weakness, and poor posture. Pt would benefit from skilled PT services to address ROM limitations that affect her ability to perform ADLs and recreational act. Rehabilitation Potential: Good Anticipated Interventions Patient/Client Instruction: Educate patient on: Condition and Plan of Care For the Purpose of:: To decrease pain, To increase ROM, To improve muscle performance and motor function, To improve ability to perform ADL's, To increase tolerance to activity/condition/position, To improve performance and independence with ADL's, To improve ability of physical actions for home/community/work/leisure, To improve health of tissue, To decrease soft tissue restriction, To increase flexibility/ROM, To assume or resume ADL's, To improve health and function, To foster healthy habits, To improve self management, To prevent re-injury, To improve ability to perform tasks related to life management and To improve tolerance to ADL's Therapeutic Exercise to Include: Strength training, Postural training, Flexibilty training, Passive ROM, Active ROM and Scapular Strength/Stabilization For the Purpose of:: To decrease pain, To increase ROM, To improve muscle performance and motor function, To increase tolerance to activity/condition/position, To improve performance and independence with ADL's, To improve ability of physical actions for home/community/work/leisure, To improve health of tissue, To increase flexibility/ROM, To assume or resume ADL's, To reduce risk of recurrence, To foster healthy habits, To improve self management, To prevent re-injury, To improve ability to perform tasks related to life management and To improve tolerance to ADL's Manual Therapy Techniques to Include: Mobilization, Passive ROM and Soft tissue mobilization For the Purpose of:: To decrease pain, To increase ROM and To increase flexibility/ROM TENS: Yes Cryotherapy (ice pack, ice massage): Yes Thermo therapy (hot pack): Yes Ultrasound (thermal/non thermal): Yes For the Purpose of:: To decrease pain, To decrease swelling/inflammation and To increase ROM Text: Thank you for the opportunity to evaluate your patient. For Medicare and Medicare HMO plans, please review the plan of care and approve it. It will need to be FAXED BACK to us at [phone] for Medicare purposes. For Medicare only, by signing this I certify the plan of care. Please let me know if there are questions or concerns regarding this plan of care. Physician Signature: Date:
--- NOTE | 2023-10-23 15:24 | HP.PTDCSUM ---
Discharge Summary D/C summary: It has been my pleasure to treat SAMANTHA RIVERA referred by Dr. Lena Trejo MD, with the diagnosis of L shoulder/RTC tendonitis for a total of 7 visit(s). Discharge Date: 10/23/23 Please see the following information for a summary of their discharge status. Subjective Subjective: Pt. reports 2/10 pain in L shoulder mostly in the posterior aspect. She reports being a little bit more sore since doing more of her exercises. Pt., repots being 40% better overall. Pain Left Shoulder: Pain Intensity (Out of 10): 2 Overall Improvement % Improvement: 40 Objective Objective/Function: PROM: L shoulder: flexion 150deg, abd 145deg, ER at 90deg of abd 60deg, IR at 90deg of abd 40deg. AROM: L shoulder flexion 135deg, abd 110deg, functional ER C2 aberrant motion, functional ER L5. Pt. reports pain and stiffness as her limiting factors. MMT: Pt. has symmetrical strength throughout B shoulders without reports increased pain in mid ranges. I talked with her about focusing on regaining her ROM, She is able to play golf, but has not tried pickleball yet. We reviewed phase II ROM exercises today. Pt. did well with all of these. I want her to continue with these, if not improving I recommend that she follow back up with physician for further testing. Goals Goal 1:: Pt will achieve symmetrical shoulder ROM with <2/10 pain at end range Goal Progress: Progressing Goal 2:: Pt will demonstrate symmetrical shoulder strength with <2/10 pain Goal Progress: Goal Met Goal 3:: Pt will be able to play golf a round of golf with <2/10 pain Goal Progress: Goal Met Goal 4:: Pt will be able to drive for >30min with <2/10 pain and stiffness Goal Progress: Goal Met Goal 5:: Pt will demonstrate good posture throughout entire session without cues to correct Goal Progress: Progressing Plan Plan: Pt. DC to HEP with focus on ROM exercises. D/C Information Discharge Comments: Pt. is overall progressing, but still pretty stiff. I recommended that she stick with her ROM exercises as her strength is decent. Pt. to trial this for a ~1 month and if not improving follow up with physician. Pt. consents. d/c sentence: If there are questions or concerns regarding this patient's physical therapy, please feel free to call me at [phone]. Thank you for the referral of this patient. Sincerely, Gato Miller, DPT Balance/Gait/Functional tests Balance/Special Test Scores Quick DASH Score: 20.4525 Improvement % Improvement: 40
== END 2023-10-23 19:00 | disposition home or self-care (01) ==
LOC: PT 13:30
PROVIDERS: PCP Family Medicine; Referring Provider Family Medicine; Visit Provider Family Medicine
DX: M75.102 Unspecified rotator cuff tear or rupture of left shoulder, not specified as traumatic (principal)
CPT/HCPCS: 97110; 97140; 97161; 97530

== ENCOUNTER → 2023-11-05 | Outpatient (CLI) | payer MEDICARE, OTHER, SELFPAY ==
--- NOTE | 2023-11-05 14:26 | BD_ITS ---
STUDY: DUAL ENERGY X-RAY ABSORPTIOMETRY / DXA REASON FOR EXAM: Female, 68 years old. 733.90OsteopeniaBONE DENSITY REASON FOR EXAM TECHNIQUE: Bone Mineral Density (BMD) measurements of lumbar spine and bilateral hips were obtained. COMPARISON: Comparison is made with prior study dated September 20, 2020. FINDINGS: Lumbar Spine (L1-L4): g/cm2 (0.968) / T-score (-0.6) / Z-score (1.4) Findings are suggestive of normal bone density with a low fracture risk. Left Femur Total: g/cm2 (0.851) / T-score (-0.7) / Z-score (0.7) Left Femoral Neck: g/cm2 (0.662) / T-score (-1.7) / Z-score (0.1) Right Femur Total: g/cm2 (0.825) / T-score (-1.0) / Z-score (0.5) Right Femoral Neck: g/cm2 (0.649) / T-score (-1.8) / Z-score (0.0) The T-Scores on the most recent prior examination were: Lumbar Spine (L1-L4): There has been improvement of bone density since the previous examination. Left Femur Total: which represents an improvement of 8.3%. Right Femur Total: which represents an improvement of 4%. BD/Dexa Bone Density Study IMPRESSION: The patient is considered osteopenic as outlined below according to World Tal Organization (WHO) criteria with a moderate fracture risk. There has been improvement of bone density since the previous examination. Reference Information: The T-score is the number of standard deviations above or below the standard which is normal for young adults at their peak bone mineral density. The World Health Organization (WHO) interprets the T-scores as follows: Above -1 Normal bone density Between -1 and -2.5 Osteopenia Equal to / or below -2.5 Osteoporosis As a practical clinical guideline, osteopenia may be graded as follows: Mild -1 through -1.5 Moderate -1.6 through -2.0 Severe -2.1 through -2.4 The Z-score is the number of standard deviations above or below age-matched controls. A Z-score of less than -1.5 would be considered abnormal. References: 1. NIH Osteoporosis and Related Bone Diseases www osteo.org 2. International Society for Clinical Densitometry www iscd.org 3. National Osteoporosis Foundation www nof.org Electronically Signed: Jj Fowler MD at 13:24 EDT ,
== END | disposition home or self-care (01) ==
LOC: OPBD 14:23
PROVIDERS: PCP Family Medicine; Referring Provider Family Medicine; Visit Provider Family Medicine
DX: M85.89 Other specified disorders of bone density and structure, multiple sites (principal)
CPT/HCPCS: 77080

== ENCOUNTER → 2023-12-25 | Outpatient (CLI) | payer MEDICARE, OTHER, SELFPAY ==
--- NOTE | 2023-12-26 14:31 | STRESSREP ---
Stress Test Report Date: 12/25/2023 Procedure: Exercise tolerance test/imaging study Indications: Chest pain Consent: Per the patient Procedure: The patient exercised on a Curry protocol for 7 minutes achieving a peak heart rate of 176 bpm (116% predicted maximal heart rate) with a peak blood pressure 148/88 mmHg and a peak MET capacity of 10 METs. The baseline ECG demonstrated normal sinus rhythm. The peak exercise ECG demonstrated no significant ischemic changes. EKG during recovery revealed no significant ischemic changes [There were no cardiac dysrhythmias pretest, during exercise, or recovery]. The functional capacity was considered excellent for age. There was [no complaint of chest discomfort during exercise or recovery]. The examination was discontinued secondary to achieving target heart rate. Impression: 1. Technically adequate (percent predicted maximal heart rate greater than 85%) exercise tolerance test 2. Stress test is negative for exercise-induced EKG changes of ischemia 3. The test test is negative for exercise-induced chest pain 4. Functional capacity is excellent for age 5. Nuclear images pending Myocardial perfusion imaging study: Technique: The patient was injected with 10.9 mCi of technetium 99m Cardiolite and subsequently rest SPECT Cardiolite nuclear imaging was obtained in the horizontal long, vertical long, and short axis views. The patient exercised on a Curry protocol. Please see above for details. The patient was injected with 33.5 mCi of technetium 99m Cardiolite and subsequently stress SPECT Cardiolite nuclear imaging was obtained in the horizontal long, vertical long, and short axis views. A gated Cardiolite study at peak stress was obtained. Interpretation: Rest and stress SPECT Cardiolite nuclear imaging status post realignment, normalization, and attenuation correction, demonstrates no evidence of significant ischemia or infarction. The gated Cardiolite study demonstrates no significant regional wall motion abnormalities. The reported LVEF is greater than 70%. Impression: 1. There is no evidence of significant ischemia or infarction. 2. The gated Cardiolite study reports an LVEF of greater than 70%. This note was generated with [employer] software. It may contain incorrect words, spelling, and punctuation that were not noted in checking the note before signing.
== END | disposition home or self-care (01) ==
LOC: CVS 06:40
PROVIDERS: PCP Family Medicine; Referring Provider Family Medicine; Visit Provider Family Medicine
DX: R07.9 Chest pain, unspecified (principal)
CPT/HCPCS: 78452; 93017; A9500; A4216

== ENCOUNTER → 2024-10-02 | Outpatient (CLI) | payer MEDICARE, OTHER, SELFPAY ==
--- NOTE | 2024-10-02 13:05 | BI_ITS ---
EXAM: SCRN MAMM (CAD)W/JOANN BILAT 10/02/2024 CLINICAL HISTORY: F, Age 69 y/o , SCREENING FOR BREAST CANCER TECHNIQUE: Bilateral screening digital breast tomosynthesis with 2D and 3D images. Computer aided detection. COMPARISON: Prior exam(s) dated 09/04/2023, 08/10/2022, 04/24/2021. FINDINGS: TISSUE DENSITY: The breast tissue is heterogenously dense, which may obscure small masses. The mammogram demonstrates that the patient has dense breasts. Supplemental screening with whole breast ultrasound or MRI may be considered for further evaluation. Bilateral Breast Mammographic Findings: 1. There is architectural distortion in the central left breast at anterior depth. 2. There is an asymmetry in the superior left breast seen on the MLO view at posterior depth. 3. There is a focal asymmetry in the upper-outer left breast at posterior depth. 4. No significant masses, calcifications or other abnormalities are identified right breast. BI/SCRN MAMM (CAD)W/JOANN BILAT IMPRESSION: 1. Recommend diagnostic mammogram and ultrasound of the left breast for the ar chitectural distortion, asymmetry and focal asymmetry, as described above. Right Breast: BIRADS 1 NEGATIVE. Left Breast: BIRADS 0 Incomplete: Need additional imaging evaluation and/or pr ior mammograms for comparison.. OVERALL FINAL ASSESSMENT: BIRADS 0 Incomplete: Need additional imaging evaluati on and/or prior mammograms for comparison.. RECOMMENDATION: Additional projections. A letter with findings and recommendations will be mailed to the patient. Reading Location: [id number]
== END | disposition home or self-care (01) ==
LOC: OPBI 13:03
PROVIDERS: PCP Family Medicine; Referring Provider Family Medicine; Visit Provider Family Medicine
DX: Z12.31 Encounter for screening mammogram for malignant neoplasm of breast (principal)
CPT/HCPCS: 77063; 77067

== ENCOUNTER → 2024-10-14 | Outpatient (CLI) | payer MEDICARE, OTHER, SELFPAY ==
--- NOTE | 2024-10-14 12:49 | BI_ITS ---
EXAM: DIAG MAMM W/CAD, UNILAT; BREAST LIMITED UNILATERAL; LT BRST UNILAT JOANN ADD ON 10/14/2024 CLINICAL HISTORY: 69-year-old female presents for callback from screen for left breast findings seen on examination of 10/02/2024. No family history of breast cancer. TECHNIQUE: Left diagnostic digital breast tomosynthesis with 2D and 3D images. Computer aided detection. Also, targeted left breast ultrasound was performed. COMPARISON: Prior exam(s) dated 10/02/2024, 09/04/2023, 08/10/2022. FINDINGS: MAMMOGRAM: TISSUE DENSITY: The breast tissue is heterogenously dense, which may obscure small masses. Left breast: 1. Follow-up examination performed for the architectural distortion in the central left breast on examination of 10/02/2024. On the present examination, there is a focal asymmetry in the central left breast at anterior depth. 2. Follow-up examination performed for the asymmetry in the superior left breast at posterior depth on examination of 10/02/2024. On the present examination, the asymmetry in the superior left breas at posterior depth visualized on the MLO view does not persist. 3. Follow-up examination performed for the focal asymmetry in the upper-outer left breast at posterior depth on examination of 10/02/2024. On the present examination, the focal asymmetry in the upper-outer left breast at posterior depth persist. LEFT BREAST ULTRASOUND: 1. There is a cyst in the retroareolar 3 o'clock left breast measuring 0.5 x 0.4 x 0.3 cm. This likely correlates with the mammographic finding. 2. There is no sonographic correlate. 3. There is a cyst in the left breast at 2 o'clock 5 cm from the nipple measuring 0.4 x 0.4 x 0.2 cm. This is a probable correlate for the mammographic finding. Also, there is another cyst in the left breast at 3 o'clock 3 cm from the nipple measuring 0.3 x 0.3 x 0.2 cm. BI/Lt Brst Unilat Joann Add On IMPRESSION: Left breast cysts are benign. OVERALL FINAL ASSESSMENT: BIRADS 2 BENIGN FINDING. RECOMMENDATION: Routine annual follow-up in 1 Year A letter with findings and recommendations will be mailed to the patient. Reading Location: [id number]
== END | disposition home or self-care (01) ==
LOC: OPBI 12:46
PROVIDERS: PCP Family Medicine; Referring Provider Family Medicine; Visit Provider Family Medicine
DX: N60.02 Solitary cyst of left breast (principal)
CPT/HCPCS: 76642; 77061; 77065; G0279

== ENCOUNTER → 2024-10-16 | Outpatient (CLI) | payer MEDICARE, OTHER, SELFPAY ==
[2024-10-16 12:34] LABS: Hemoglobin A1c 5.4 % (<=5.6)
[2024-10-16 12:43] LABS: Cholesterol 220 mg/dL (<=200); High Density Lipoprotein 73 mg/dL; Low Density Lipoprotein Calc. 129 mg/dL; Triglycerides 90 mg/dL; Very Low Density Lipoprotein 18 mg/dL (5-40); cholesterol:hdl ratio screen 3.01
== END | disposition home or self-care (01) ==
LOC: MFPLAB 09:42
PROVIDERS: PCP Family Medicine
DX: Z13.1 Encounter for screening for diabetes mellitus (principal); Z13.220 Encounter for screening for lipoid disorders
CPT/HCPCS: 36415; 80061; 83036